=== PATIENT | male | born 1965 | race Caucasian/White ===

== ENCOUNTER 2017-06-02 15:29 | Emergency (ER) | payer BC ==
--- NOTE | 2017-06-02 16:10 | ERNOTE ---
Chest Pain/Cardiac HPI Date of Service: 06/02/17 Chief Complaint: Palpitations Time Seen by Provider: 06/02/17 15:59 Source: patient, RN notes reviewed Exam Limitations: no limitations Immunizations: IMMUNIZATION HX Immunizations Up to Date No History of Influenza Vaccine No Hx Pneumococcal Vaccination No Allergies/Adverse Reactions: Allergies No Known Allergies Allergy (Verified 06/02/17 15:42) Home Medications: HOME MEDICATIONS NK [No Home Medication] 06/02/17 [Last Taken Unknown] Narrative: 51 year old male ambulatory to the ED for palpitations that he first noticed yesterday afternoon. He had been up all night driving the night before, which is unusual for him. He has also been feeling like he has a hangover and having body aches. He was unable to sleep last night. He had to urinate several times before he finally went to sleep at 3 a.m. He reports that he does not usually have to get up at night to urinate. He has not had palpitations in the past. Date (Duration): 06/01/17 Time (Timing): 13:00 Timing: other - Still present but not as severe as yesterday Activities at Onset: none Prior Treatment: Denies: recently seen Review of Systems - Review of Systems Constitutional: Present: chills, fatigue, malaise. Absent: recent illness EYE: Present: no symptoms reported ENT: Absent: ear pain, nose congestion, sore throat Respiratory: Absent: shortness of breath, cough Cardiology: Present: palpitations. Absent: chest pain, syncope, edema Gastrointestinal/Abdominal: Absent: nausea, abdominal pain Genitourinary: Present: other - Nocturia. Absent: dysuria, hematuria Skin: Absent: rash, lesions Neurological: Absent: headache, dizziness/light-headedness Endocrine: Present: increased thirst. Absent: unexplained weight loss Hematologic/Lymphatic: Absent: easy bruising, easy bleeding Psych: Absent: anxiety, depressed - Patient's Past Medical History Patient History - Medical: No pertinent hx Patient History - Cardiac/Respiratory: No pertinent hx Patient History - Cancer: No Hx of Cancer Patient History - Surgical Procedures: No surgical history Patient History - Other: None - Social History Living Situations: home Abuse History: No History of abuse Psych History: No pertinent hx Smoking Status: Never smoker Alcohol Use: none Drug Use: none - Immunizations Immunizations Up to Date: No Hx Pneumococcal Vaccination: No History of Influenza Vaccine: No Physical Exam - Physical Exam General Appearance: Present: wd/wn, alert, no apparent distress Head Exam: Present: normal inspection Eye Exam: Normal inspection: bilateral Ears, Nose, Throat: Present: normal ENT inspection, normal pharynx Neck: Present: normal inspection, nontender, supple. Absent: thyromegaly Respiratory: Present: no respiratory distress, normal breath sounds, no accessory muscle use, lungs clear Cardiovascular/Chest: Present: no murmur, normal peripheral pulses, tachycardia Extremity Exam: Present: normal inspection, normal range of motion Neurological Exam: Present: alert, oriented, normal mood/affect, no motor/ sensory deficits Skin Exam: Present: normal color, warm/dry ED Progress - Results and Orders Patient's Lab Results:: I have reviewed the patient's lab results. - Vital Signs Patient's Vital Signs:: I have reviewed the patient's vital signs. Vital Signs: Vital Signs 06/02/17 15:34 Temperature 37.4 C Pulse Rate 131 H Respiratory 17 Rate Blood Pressure 156/90 O2 Sat by Pulse 97 Oximetry - EKG EKG: other - Sinus tach 119 EKG read: Reviewed by me - Progress/Reassessment Chief Complaint: Palpitations Progress:: Improved Plan - Plan Plan: Noted to have slightly elevated temperature, also has shift in WBC. Temp rechecked and was 37.9. Tylenol given and tachycardia improved with HR mostly in the 90's. Patient verbalizes feeling better. No clear source for infection. Suspect viral etiology. Discussed f/u for new/worsening symptoms. Patient in agreement with plan. Departure Clinical Impression: Palpitations Fever Qualifiers: Fever type: unspecified Qualified Code(s): R50.9 - Fever, unspecified - Departure Disposition: Home Follow Up Needed Condition: Good Instructions: Palpitations, [id number] Additional Instructions: Rest, drink plenty of water, take Tylenol as directed on label for fever, follow up if symptoms worsen or if you are not improving in 2 to 3 days Referrals: Sheri Soler, [facility] [Primary Care Provider] -
[2017-06-02 16:31] LABS: Hematocrit 43.3 % (42.0-52.0); Hemoglobin 15.2 gm/dL (13.5-18.0); Mean Cell Volume 88.9 fl (78-100); Mean Corpuscular Hemoglobin 31.2 pg (27-31); Mean Corpuscular Hgb Conc 35.1 g/dl (32-36); Mean Platelet Volume 11.2 fl (6.0-9.5); Neutrophil # 7.4 K/mm3 (1.3-6.0); Neutrophil % 78.4 % (42-75.0); Platelet Count 128 K/mm3 (150-450); Red Blood Count 4.87 M/mm3 (4.7-6.0); Red Cell Distribution Width 12.3 % (11.5-14.0); White Blood Count 9.4 K/mm3 (4.0-10.5)
[2017-06-02 16:39] LABS: Urine Bilirubin Negative (NEGATIVE); Urine Blood Negative /ul (NEGATIVE); Urine Ketone Negative (NEGATIVE); Urine Nitrite Negative (NEGATIVE); Urine Protein Negative (NEGATIVE); Urine Urobilinogen Normal (NORMAL); Urine pH 6.5 pH (5.0-7.0)
[2017-06-02 16:49] LABS: Anion Gap 13.5 mmol/L (6.8-13.8); BUN/Creatinine Ratio 11.5 (9.0-21.6); Bilirubin, Total 0.7 mg/dL (0.0-1.1); Ca. Corrected For Albumin 8.7 mg/dL (8.4-10.2); Carbon Dioxide 29.3 mmol/L (24-32.6); Magnesium 1.9 mg/dL (1.2-2.8); Potassium 3.8 mmol/L (3.4-4.6); TSH * 1.028 uIU/mL (0.358-3.74); Total Protein 7.5 gm/dL (6.2-8.2)
[2017-06-02 16:52] LABS: Cocaine Ur Negative (NEGATIVE); Urine Barbiturate Negative (NEGATIVE); Urine Benzodiazepines Negative (NEGATIVE); Urine Opiates Negative (NEGATIVE); Urine PCP Negative (NEGATIVE); Urine THC Negative (NEGATIVE)
[2017-06-02 16:53] LABS: Urine Appearance Clear; Urine Bacteria TRACE; Urine Color Yellow; Urine RBC None Seen /hpf (0-5); Urine WBC None Seen /hpf (0-5)
[2017-06-02] MEDS ORDERED: ACETAMINOPHEN 325 MG TABLET ONE (17:01)
[2017-06-02] MEDS ORDERED: ACETAMINOPHEN 325 MG TABLET PO ONE (17:03)
[2017-06-02 18:23] VITALS: BP 127/71
== END 2017-06-02 18:20 | disposition home or self-care (01) ==
LOC: ER 15:29
DX: R00.2 Palpitations (principal); R50.9 Fever, unspecified